=== PATIENT | female | born 1950 | race Caucasian/White ===

== ENCOUNTER 2018-04-29 12:40 | Inpatient (IN) | END 2018-05-04 21:05 | disposition home or self-care (01) | DRG 247 ==

== ENCOUNTER 2018-05-10 10:49 | Inpatient (IN) | END 2018-05-19 16:20 | disposition home or self-care (01) | DRG 377 ==

== ENCOUNTER 2018-05-24 08:34 | Inpatient (IN) | END 2018-05-27 15:10 | disposition home or self-care (01) | DRG 281 ==

== ENCOUNTER 2018-07-20 22:05 | Inpatient (IN) | END 2018-07-24 15:50 | disposition home or self-care (01) | DRG 378 ==

== ENCOUNTER 2018-08-04 00:56 | Observation (INO) | END 2018-08-05 18:36 | disposition home or self-care (01) ==

== ENCOUNTER 2019-01-10 06:19 | Inpatient (IN) | payer OTHER ==
[~2019-01-10] VITALS: Ht 157.5 cm; Wt 63.1 kg
[~2019-01-10 06:19] MED LIST: AMIO200T4 PO; ASPI-817 PO; ATOR-2 PO; CLOP75TA28 PO; FURO20TA3 PO; GABA300C16 PO; INSU100V14 SC; LANT3I SC; LIPA1CAP4 PO; METO-335 PO; PANT40TA4 PO; POLY17PO28 PO; POTA8CAP PO; SUCR1TAB56 PO
--- NOTE | 2019-01-10 06:56 | ERD ---
ER Documentation Chief Complaint Chief Complaint I feel bad HPI This is a 68-year-old female states she woke up this morning and felt bad. The daughter states that her blood pressure was elevated and she was shaking but not a seizure. Patient says she has had a cough for 3 or 4 days with occasional productive sputum. She is a history of cardiac stent diabetes. She had no chest pain. No headache, no abdominal pain, no nausea vomiting diarrhea. She does have general malaise, no dysuria ROS All systems reviewed and are negative except as per history of present illness. Medications Home Meds Active Scripts Potassium Chloride* (Potassium Chloride*) 8 Meq Capsule.er, 8 MEQ PO DAILY for 30 Days, CAP Prov:MILAN PORTER MD 08/05/18 Furosemide* (Furosemide*) 20 Mg Tablet, 20 MG PO DAILY for 30 Days, #60 TAB Prov:MILAN PORTER MD 08/05/18 Metoprolol Succinate* (Toprol XL*) 25 Mg Tab.sr.24h, 12.5 MG PO DAILY for 30 Days Prov:MILAN PORTER MD 05/27/18 Amiodarone Hcl* (Amiodarone Hcl*) 200 Mg Tablet, 200 MG PO DAILY for 30 Days, TAB Prov:MILAN PORTER MD 05/27/18 Polyethylene Glycol* (Polyethylene Glycol*) 17 Gm Powd.pack, 17 GM PO DAILY PRN for CONSTIPATION for 30 Days Prov:DINA STOKES 05/19/18 Sucralfate* (Carafate*) 1 Gm Tab, 1 GM PO QID for 30 Days, TAB Prov:DINA STOKES 05/19/18 Pantoprazole* (Pantoprazole*) 40 Mg Tablet., 40 MG PO BID@06,18 for 30 Days Prov:DINA STOKES 05/19/18 Aspirin* (Aspirin* EC) 81 Mg Tablet., 81 MG PO DAILY for 30 Days Prov:DINA STOKES 05/19/18 Clopidogrel Bisulfate (Clopidogrel) 75 Mg Tablet, 75 MG PO DAILY for 30 Days, TAB Prov:DINA STOKES 05/19/18 Atorvastatin* (Atorvastatin*) 80 Mg Tablet, 80 MG PO DAILY@21 for 28 Days, TAB Prov:PERRY BOYER MD 05/03/18 Reported Medications Gabapentin* (Gabapentin*) 300 Mg Capsule, 300 MG PO BID, #60 CAP 04/29/18 Akgmci-Iwiftuws-Uubkmvw* (Mally ESQUIVEL* 12,000) 12,000 L-38,000-60,000 Unit Capsule., 1 CAP PO WITH MEALS, CAP 04/29/18 Insulin Glargine* (Lantus*) 100 Unit/Ml Soln, 15 UNIT SC QHS, #1 VIAL 12/17/15 Insulin Regular, Human (Humulin R) 100 Units/Ml Vial, 0 SC SLIDING SCALE AC, VIAL 12/17/15 Allergies Allergies: Coded Allergies: No Known Allergy (Unverified , 05/24/18) PMhx/Soc History of Surgery: Yes (partial removal of pancrea, stent, EGD) Anesthesia Reaction: Yes Hx Neurological Disorder: No Hx Respiratory Disorders: No Hx Cardiac Disorders: Yes (CAD, DLD, HTN, a-fib) Hx Psychiatric Problems: No Hx Miscellaneous Medical Probl: No Hx Alcohol Use: No Hx Substance Use: No Hx Tobacco Use: No FmHx Family History: No coronary disease Physical Exam Vitals Vital Signs Date Temp Pulse Resp B/P (MAP) Pulse Ox O2 O2 Flow FiO2 Time Delivery Rate 01/10/19 69 16 129/66 96 Nasal 2.0 09:12 (87) Cannula 01/10/19 65 16 150/80 96 Nasal 07:23 (103) Cannula 01/10/19 Nasal 2 07:00 Cannula 01/10/19 98.0 72 20 144/80 92 07:00 (101) Physical Exam Const: Well-developed, well-nourished Head: Atraumatic, normocephalic Eyes: Normal Conjunctiva, PERRLA, EOMI, normal sclera, no nystagmus ENT: Normal External Ears, Nose and Mouth, moist mucus membranes. Neck: Full range of motion. No meningismus, no lymphadenopathy. Resp: Scattered mild rhonchi bilaterally, room air saturations 93% Cardio: Regular rate and rhythm, no murmurs, S1 S2 present Abd: Soft, non tender x 4, non distended. Normal bowel sounds, no guarding or rebound, no pulsitile abdominal masses or bruits Skin: No petechiae or rashes, no ecchymosis , no maculopapular rash Back: No midline or flank tenderness Ext: No cyanosis, or edema, FROM x 4, normal inspection, neurovascularly intact x 4 Neur: Awake and alert, STR 5/5 x 4, sensation intact x 4, no focal findings, cerebellum intact Psych: Normal Mood and Affect Result Diagram: 01/10/19 0659 01/10/19 0659 Results 24 hrs Laboratory Tests Test 01/10/19 06:43 01/10/19 06:59 Bedside Glucose 170 mg/dL White Blood Count 7.8 10^3/ul Red Blood Count 4.32 10^6/ul Hemoglobin 12.0 g/dl Hematocrit 38.2 % Mean Corpuscular Volume 88.4 fl Mean Corpuscular Hemoglobin 27.8 pg Mean Corpuscular Hemoglobin Concent 31.4 g/dl Red Cell Distribution Width 16.8 % Platelet Count 251 10^3/UL Mean Platelet Volume 13.8 fl Immature Granulocytes % 0.300 % Neutrophils % 46.0 % Lymphocytes % 40.8 % Monocytes % 10.4 % Eosinophils % 1.7 % Basophils % 0.8 % Nucleated Red Blood Cells % 0.0 /100WBC Immature Granulocytes # 0.020 10^3/ul Neutrophils # 3.6 10^3/ul Lymphocytes # 3.2 10^3/ul Monocytes # 0.8 10^3/ul Eosinophils # 0.1 10^3/ul Basophils # 0.1 10^3/ul Nucleated Red Blood Cells # 0.0 10^3/ul Urine Color STRAW Urine Clarity CLEAR Urine pH 7.0 Urine Specific [place] 1.008 Urine Ketones NEGATIVE mg/dL Urine Nitrite NEGATIVE mg/dL Urine Bilirubin NEGATIVE mg/dL Urine Urobilinogen NEGATIVE mg/dL Urine Leukocyte Esterase TRACE Chinedu/ul Urine Microscopic RBC 1 /HPF Urine Microscopic WBC 4 /HPF Urine Hemoglobin NEGATIVE mg/dL Urine Glucose NEGATIVE mg/dL Urine Total Protein NEGATIVE mg/dl Sodium Level 146 mmol/L Potassium Level 3.9 mmol/L Chloride Level 104 mmol/L Carbon Dioxide Level 31 mmol/L Anion Gap 11 Blood Urea Nitrogen 25 mg/dl Creatinine 1.08 mg/dl Est Glomerular Filtrat Rate mL/min 50 mL/min Glucose Level 171 mg/dl Calcium Level 9.2 mg/dl Total Bilirubin 0.7 mg/dl Direct Bilirubin 0.00 mg/dl Indirect Bilirubin 0.7 mg/dl Aspartate Amino Transf (AST/SGOT) 21 IU/L Alanine Aminotransferase (ALT/SGPT) 20 IU/L Alkaline Phosphatase 109 IU/L Troponin I 0.022 ng/ml B-Type Natriuretic Peptide 2220 PG/ML Total Protein 7.0 g/dl Albumin 4.0 g/dl Globulin 3.00 g/dl Albumin/Globulin Ratio 1.33 Procedures/MDM Ordering MD: ANDI DANIELS DO Location: E/R Room/Bed: PROCEDURE: XR Chest. CLINICAL INDICATION: Chest pain. TECHNIQUE: Chest, 1 view. COMPARISON: 08/04/2018 FINDINGS: The cardiomediastinal silhouette demonstrates enlargement of the cardiac silhouette. There are aortic calcifications. There is bilateral interstitial pulmonary edema. No pleural effusion is seen. No definite pneumothorax is seen. No acute osseous abnormality. IMPRESSION: Cardiomegaly with interstitial pulmonary edema. 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 Will admit for some diuresis/workup / stabilization. Departure Diagnosis: Primary Impression: Congestive heart failure Heart failure type: unspecified Heart failure chronicity: unspecified Qualified Codes: I50.9 - Heart failure, unspecified Condition: Stable ANDI DANIELS DO Jan 10, 2019 06:56
[2019-01-10] MEDS ORDERED: FUROSEMIDE 40 MG INJ IV ONE (11:30)
[2019-01-10] MEDS ORDERED: ACETAMINOPHEN 325 MG TAB PO PRN ×2 (13:00)
[2019-01-10] MEDS ORDERED: ONDANSETRON 4 MG INJ IV PRN ×2 (13:00)
--- NOTE | 2019-01-10 13:46 | CONS ---
Assessment/Plan Assessment/Plan Assessment/Plan (Daily) Assessment: CHF systolic and diastolic acute and chronic Anterior ST elevation [place] April 29, 2018 CAD status post PCI to LAD 04/29/2018 Ischemic cardiomyopathy with ejection fraction 35% History of hypertension Diabetes Paroxysmal atrial fibrillation, currently sinus rhythm GI bleed, history Plan: Furosemide as needed ACS less likely continue ASA and plavix Telemetry Consultation Date/Type/Reason Admit Date/Time Type of Consult Cardiology Reason for Consultation CHF Date/Time of Note DATE: 01/10/19 TIME: 13:42 Hx of Present Illness admitted "feeling bad", no chest pain, currently in ED, able to lie flat, elevated BNP and fluid in CXR was noted. Constitutional: no complaints ENT: no complaints Respiratory: no complaints Cardiovascular: no complaints Gastrointestinal: no complaints Musculoskeletal: no complaints Skin: no complaints Neurologic: no complaints Endocrine: no complaints Past Medical History Medical History: congestive heart failure, coronary artery disease, high cholesterol, hypertension Home Meds Active Scripts Potassium Chloride* (Potassium Chloride*) 8 Meq Capsule.er, 8 MEQ PO DAILY for 30 Days, CAP Prov:MILAN PORTER MD 08/05/18 Furosemide* (Furosemide*) 20 Mg Tablet, 20 MG PO DAILY for 30 Days, #60 TAB Prov:MILAN PORTER MD 08/05/18 Metoprolol Succinate* (Toprol XL*) 25 Mg Tab.sr.24h, 12.5 MG PO DAILY for 30 Days Prov:MILAN PORTER MD 05/27/18 Amiodarone Hcl* (Amiodarone Hcl*) 200 Mg Tablet, 200 MG PO DAILY for 30 Days, TAB Prov:MILAN PORTER MD 05/27/18 Polyethylene Glycol* (Polyethylene Glycol*) 17 Gm Powd.pack, 17 GM PO DAILY PRN for CONSTIPATION for 30 Days Prov:DINA STOKES 05/19/18 Sucralfate* (Carafate*) 1 Gm Tab, 1 GM PO QID for 30 Days, TAB Prov:DINA STOKES 05/19/18 Pantoprazole* (Pantoprazole*) 40 Mg Tablet., 40 MG PO BID@06,18 for 30 Days Prov:DINA STOKES 05/19/18 Aspirin* (Aspirin* EC) 81 Mg Tablet., 81 MG PO DAILY for 30 Days Prov:DINA STOKES 05/19/18 Clopidogrel Bisulfate (Clopidogrel) 75 Mg Tablet, 75 MG PO DAILY for 30 Days, TAB Prov:DINA STOKES 05/19/18 Atorvastatin* (Atorvastatin*) 80 Mg Tablet, 80 MG PO DAILY@21 for 28 Days, TAB Prov:PERRY BOYER MD 05/03/18 Reported Medications Gabapentin* (Gabapentin*) 300 Mg Capsule, 300 MG PO BID, #60 CAP 04/29/18 Sunnke-Zsfdymcz-Aqzgrwy* (Mally ESQUIVEL* 12,000) 12,000 L-38,000-60,000 Unit Capsule.dr, 1 CAP PO WITH MEALS, CAP 04/29/18 Insulin Glargine* (Lantus*) 100 Unit/Ml Soln, 15 UNIT SC QHS, #1 VIAL 12/17/15 Insulin Regular, Human (Humulin R) 100 Units/Ml Vial, 0 SC SLIDING SCALE AC, VIAL 12/17/15 Medications Current Medications Ondansetron HCl (Zofran Inj) 4 mg ER BRIDGE PRN IV NAUSEA/VOMITING; Start 01/10/19 at 13:00; Stop 01/11/19 at 12:59 Acetaminophen (Tylenol Tab) 650 mg ER BRIDGE PRN PO .MILD PAIN 1-3 OR TEMP; Start 01/10/19 at 13:00; Stop 01/11/19 at 12:59 Ondansetron HCl (Zofran Inj) 4 mg ER BRIDGE PRN IV NAUSEA/VOMITING; Start 01/10/19 at 13:00; Stop 01/11/19 at 12:59 Acetaminophen (Tylenol Tab) 650 mg ER BRIDGE PRN PO .MILD PAIN 1-3 OR TEMP; Start 01/10/19 at 13:00; Stop 01/11/19 at 12:59 Allergies: Coded Allergies: No Known Allergy (Unverified , 05/24/18) Past Surgical History Past Surgical Hx: angioplasty, cholecystectomy, other Family History Significant Family History: hypertension Social History Smoking Status: Never smoker Exam/Review of Systems Vital Signs Vitals Vital Signs Date Temp Pulse Resp B/P (MAP) Pulse Ox O2 O2 Flow FiO2 Time Delivery Rate 01/10/19 65 16 132/71 98 Nasal 2.0 12:46 (91) Cannula 01/10/19 98.0 07:00 Exam Constitutional: frail Head: normocephalic, atraumatic Neck: supple, jvd Respiratory: diminished breath sounds Cardiovascular: regular rate and rhythm Musculoskeletal: nl extremities to inspection Extremities: normal pulses Labs Result Diagram: 01/10/19 0659 01/10/19 0659 Results 24hrs Laboratory Tests Test 01/10/19 06:43 01/10/19 06:59 Bedside Glucose 170 White Blood Count 7.8 Red Blood Count 4.32 Hemoglobin 12.0 Hematocrit 38.2 Mean Corpuscular Volume 88.4 Mean Corpuscular Hemoglobin 27.8 L Mean Corpuscular Hemoglobin Concent 31.4 L Red Cell Distribution Width 16.8 H Platelet Count 251 Mean Platelet Volume 13.8 H Immature Granulocytes % 0.300 Neutrophils % 46.0 Lymphocytes % 40.8 Monocytes % 10.4 Eosinophils % 1.7 Basophils % 0.8 Nucleated Red Blood Cells % 0.0 Immature Granulocytes # 0.020 Neutrophils # 3.6 Lymphocytes # 3.2 H Monocytes # 0.8 Eosinophils # 0.1 Basophils # 0.1 Nucleated Red Blood Cells # 0.0 Urine Color STRAW Urine Clarity CLEAR Urine pH 7.0 Urine Specific [place] 1.008 Urine Ketones NEGATIVE Urine Nitrite NEGATIVE Urine Bilirubin NEGATIVE Urine Urobilinogen NEGATIVE Urine Leukocyte Esterase TRACE A Urine Microscopic RBC 1 Urine Microscopic WBC 4 Urine Hemoglobin NEGATIVE Urine Glucose NEGATIVE Urine Total Protein NEGATIVE Sodium Level 146 H Potassium Level 3.9 Chloride Level 104 Carbon Dioxide Level 31 Anion Gap 11 Blood Urea Nitrogen 25 H Creatinine 1.08 H Est Glomerular Filtrat Rate mL/min 50 L Glucose Level 171 Calcium Level 9.2 Total Bilirubin 0.7 Direct Bilirubin 0.00 Indirect Bilirubin 0.7 Aspartate Amino Transf (AST/SGOT) 21 Alanine Aminotransferase (ALT/SGPT) 20 Alkaline Phosphatase 109 Troponin I 0.022 B-Type Natriuretic Peptide 2220 H Total Protein 7.0 Albumin 4.0 Globulin 3.00 Albumin/Globulin Ratio 1.33 Imaging Imaging EKG: SR, no abnormalities Medications Medications Current Medications Ondansetron HCl (Zofran Inj) 4 mg ER BRIDGE PRN IV NAUSEA/VOMITING; Start 01/10/19 at 13:00; Stop 01/11/19 at 12:59 Acetaminophen (Tylenol Tab) 650 mg ER BRIDGE PRN PO .MILD PAIN 1-3 OR TEMP; Start 01/10/19 at 13:00; Stop 01/11/19 at 12:59 Ondansetron HCl (Zofran Inj) 4 mg ER BRIDGE PRN IV NAUSEA/VOMITING; Start 01/10/19 at 13:00; Stop 01/11/19 at 12:59 Acetaminophen (Tylenol Tab) 650 mg ER BRIDGE PRN PO .MILD PAIN 1-3 OR TEMP; Start 01/10/19 at 13:00; Stop 01/11/19 at 12:59 CLAUDIO JIN MD Jan 10, 2019 13:46
--- NOTE | 2019-01-10 14:25 | HP ---
DINA STOKES 01/10/19 1425: Date/Time of Note Date/Time of Note DATE: 01/10/19 TIME: 14:25 Assessment/Plan VTE Prophylaxis Pharmacological prophylaxis: LMWH Lines/Catheters IV Catheter Type (from Nrsg): Saline Lock Assessment/Plan Hospital Course 1. CHF exacerbation,BNP 3500. hx of EF 35%. On chest xray: "Cardiomegaly with interstitial pulmonary edema.." 2. Hypernatremia 3. CAD s/p stent to LAD, 2017 4. JONATHAN? creatinine slightly increase to 1.08 5. HTN 6. DM type II 7. Obesity 8. hyperlipidemia 9. Overweight 10. hx of pancreatic resection Assessment/Plan - Admit telemetry - DVT prophylaxis lovenox -. GI prophylaxis protonix - SS moderate with insulin coverage -dr Bhardwaj is a cardio consult, seen -C/w home meds -communicated with daughter - 1800 ADA diet with fluid restrictions - fluid restrictions Result Diagram: 01/10/19 0659 01/10/19 0659 Results 24hrs Laboratory Tests Test 01/10/19 06:43 01/10/19 06:59 Bedside Glucose 170 White Blood Count 7.8 Red Blood Count 4.32 Hemoglobin 12.0 Hematocrit 38.2 Mean Corpuscular Volume 88.4 Mean Corpuscular Hemoglobin 27.8 L Mean Corpuscular Hemoglobin Concent 31.4 L Red Cell Distribution Width 16.8 H Platelet Count 251 Mean Platelet Volume 13.8 H Immature Granulocytes % 0.300 Neutrophils % 46.0 Lymphocytes % 40.8 Monocytes % 10.4 Eosinophils % 1.7 Basophils % 0.8 Nucleated Red Blood Cells % 0.0 Immature Granulocytes # 0.020 Neutrophils # 3.6 Lymphocytes # 3.2 H Monocytes # 0.8 Eosinophils # 0.1 Basophils # 0.1 Nucleated Red Blood Cells # 0.0 Urine Color STRAW Urine Clarity CLEAR Urine pH 7.0 Urine Specific [place] 1.008 Urine Ketones NEGATIVE Urine Nitrite NEGATIVE Urine Bilirubin NEGATIVE Urine Urobilinogen NEGATIVE Urine Leukocyte Esterase TRACE A Urine Microscopic RBC 1 Urine Microscopic WBC 4 Urine Hemoglobin NEGATIVE Urine Glucose NEGATIVE Urine Total Protein NEGATIVE Sodium Level 146 H Potassium Level 3.9 Chloride Level 104 Carbon Dioxide Level 31 Anion Gap 11 Blood Urea Nitrogen 25 H Creatinine 1.08 H Est Glomerular Filtrat Rate mL/min 50 L Glucose Level 171 Calcium Level 9.2 Total Bilirubin 0.7 Direct Bilirubin 0.00 Indirect Bilirubin 0.7 Aspartate Amino Transf (AST/SGOT) 21 Alanine Aminotransferase (ALT/SGPT) 20 Alkaline Phosphatase 109 Troponin I 0.022 B-Type Natriuretic Peptide 2220 H Total Protein 7.0 Albumin 4.0 Globulin 3.00 Albumin/Globulin Ratio 1.33 HPI/ROS Admit Date/Time Admit Date/Time Hx of Present Illness This is a 68-year-old female with history of STEMI, status post stenting to the LAD in April 2018, currently on Aspirin and Plavix, ischemic cardiomyopathy and congestive heart failure with an ejection fraction of 35%, hx of atrial fibrillation, diabetes, s/p pancreas partial removal, anemia and recurrent UTI who is presented to ER with sudden onset of chills, productive cough and shortness of breath last night. She woke up this morning and felt coryza. Per ER record the daughter states that patient blood pressure was elevated and she was shaking at the night. Patient says she has had a cough for 3 or 4 days. ROS Respiratory: no complaints, pain, cough, pleuritic pain, shortness of breath, sputum (white), wheezing, other Cardiovascular: palpitations (at the nigth time), paroxysmal nocturnal dyspnea Genitourinary: no complaints, dysuria Musculoskeletal: bone/joint pain; No no complaints, No back pain, No neck pain, No restricted range of motion, No swelling, No other Skin: pruritis; No no complaints, No bruising, No erythema, No laceration, No rash, No skin lesions, No other PMH/Family/Social Past Medical History Medical History: congestive heart failure, diabetes, hypertension Medications Current Medications Ondansetron HCl (Zofran Inj) 4 mg ER BRIDGE PRN IV NAUSEA/VOMITING; Start 01/10/19 at 13:00; Stop 01/11/19 at 12:59 Acetaminophen (Tylenol Tab) 650 mg ER BRIDGE PRN PO .MILD PAIN 1-3 OR TEMP; Start 01/10/19 at 13:00; Stop 01/11/19 at 12:59 Ondansetron HCl (Zofran Inj) 4 mg ER BRIDGE PRN IV NAUSEA/VOMITING; Start 01/10/19 at 13:00; Stop 01/11/19 at 12:59 Acetaminophen (Tylenol Tab) 650 mg ER BRIDGE PRN PO .MILD PAIN 1-3 OR TEMP; Start 01/10/19 at 13:00; Stop 01/11/19 at 12:59 Coded Allergies: No Known Allergy (Unverified , 01/10/19) Past Surgical History Past Surgical Hx: angioplasty, cholecystectomy, other (pancreatic resection) Family History Significant Family History: hypertension Social History Alcohol Use: none Smoking Status: Never smoker Drug Use: none Exam/Review of Systems Vital Signs Vitals Vital Signs Date Temp Pulse Resp B/P (MAP) Pulse Ox O2 O2 Flow FiO2 Time Delivery Rate 01/10/19 65 16 132/71 98 Nasal 2.0 12:46 (91) Cannula 01/10/19 98.0 07:00 Exam Constitutional: alert, oriented Psych: no complaints Head: normocephalic Respiratory: clear to auscultation Cardiovascular: regular rate and rhythm Gastrointestinal: soft Genitourinary - Female: CVA tenderness; No nl adnexae, No nl external genitalia, No CMT, No uterus, No other MILAN PORTER MD 01/10/19 1740: Assessment/Plan Assessment/Plan Assessment/Plan seen and examined CP/ chf diurectics NTG for pain Cards consukt Result Diagram: 01/10/19 0659 01/10/19 0659 PMH/Family/Social Past Medical History Coded Allergies: No Known Allergy (Unverified , 01/10/19) DINA STOKES Jan 10, 2019 14:25 MILAN PORTER MD Jan 10, 2019 17:40
[2019-01-10] MEDS ORDERED: LISI-313 PO (14:55)
[2019-01-10] MEDS ORDERED: SUCR1TAB56 PO (14:56)
[2019-01-10] MEDS ORDERED: AMIO200T4 PO (14:56)
[2019-01-10] MEDS ORDERED: ASPI-817 PO (14:57)
[2019-01-10] MEDS ORDERED: FURO20TA3 PO (14:57)
[2019-01-10] MEDS ORDERED: PANT40TA4 PO (14:58)
[2019-01-10] MEDS ORDERED: METO-335 PO (14:59)
[2019-01-10] MEDS ORDERED: ATOR-2 PO (14:59)
[2019-01-10] MEDS ORDERED: CLOP75TA19 PO (14:59)
[2019-01-10] MEDS ORDERED: LIPA1CAP4 PO (15:00)
[2019-01-10] MEDS ORDERED: FENO145T37 PO (15:00)
[2019-01-10] MEDS ORDERED: LANT3I SC (15:01)
[2019-01-10] MEDS ORDERED: INSU100V3 IJ (15:02)
[2019-01-10] MEDS ORDERED: POTA10TA37 PO (15:03)
[2019-01-10] MEDS ORDERED: FUROSEMIDE 20 MG TAB PO SCH (15:30)
[2019-01-10] MEDS: ASPIRIN (EC) 81 MG TAB PO SCH (16:10)
[2019-01-10] MEDS: CLOPIDOGREL 75 MG TAB PO SCH (16:10)
[2019-01-10] MEDS ORDERED: GLUCAGON 1 MG INJ IM PRN (16:30)
[2019-01-10] MEDS ORDERED: GLUCOSE GEL 15 GRAM TUBE PO PRN ×2 (16:30)
[2019-01-10] MEDS ORDERED: GLUCOSE GEL 15 GRAM TUBE BUCCAL PRN (16:30)
[2019-01-10] MEDS ORDERED: DEXTROSE 50% 50 ML SYRINGE IV PRN ×2 (16:30)
[2019-01-10 16:33] VITALS: BP 160/74; PULSE 66; RESP 18
[2019-01-10 16:41] VITALS: PULSE 61
[2019-01-10] MEDS: SUCRALFATE 1 GM TAB PO SCH ×2 (17:31→22:31)
[2019-01-10] MEDS: AMIODARONE 200 MG TAB PO SCH (17:31)
[2019-01-10] MEDS: POTASSIUM CHLORIDE (SR) 10 MEQ TAB PO SCH (17:32)
[2019-01-10] MEDS: METOPROLOL (XL) 25 MG TAB PO SCH (17:33)
[2019-01-10 17:55] VITALS: Ht 157.5 cm; Wt 63.1 kg
[2019-01-10] MEDS ORDERED: CREON (12k-38k-60k) 1 CAP PO SCH (17:55)
[2019-01-10] MEDS ORDERED: NITROGLYCERIN (SL) 0.4 MG TAB SL PRN (18:00)
[2019-01-10] MEDS: CREON (12k-38k-60k) 1 CAP PO SCH (18:55)
[2019-01-10] MEDS: INSULIN ASPART [NOVOLOG] 3 ML PEN SC SCH ×2 (18:58→21:00)
[2019-01-10 19:41] VITALS: BP 134/70; PULSE 60; RESP 20
[2019-01-10 20:00] VITALS: PULSE 55
[2019-01-10] MEDS: ATORVASTATIN 80 MG TAB PO SCH (22:31)
[2019-01-11] VITALS (12 sets, daily range): BP systolic 87–124; BP diastolic 53–76; PULSE 43–59; RESP 17–18
[2019-01-11] MEDS: PANTOPRAZOLE (EC) 40 MG TAB PO SCH (06:50)
[2019-01-11] MEDS: SUCRALFATE 1 GM TAB PO SCH ×4 (06:50→21:14)
[2019-01-11] MEDS: INSULIN ASPART [NOVOLOG] 3 ML PEN SC SCH ×4 (07:55→21:54)
[2019-01-11] MEDS: AMIODARONE 200 MG TAB PO SCH (08:28)
[2019-01-11] MEDS: CREON (12k-38k-60k) 1 CAP PO SCH ×3 (08:29→17:27)
[2019-01-11] MEDS: ASPIRIN (EC) 81 MG TAB PO SCH (08:29)
[2019-01-11] MEDS: CLOPIDOGREL 75 MG TAB PO SCH (08:29)
[2019-01-11] MEDS: FENOFIBRATE 145 MG TAB PO SCH (08:29)
[2019-01-11] MEDS: POTASSIUM CHLORIDE (SR) 10 MEQ TAB PO SCH (08:30)
[2019-01-11] MEDS: FUROSEMIDE 40 MG INJ IV SCH (08:30)
[2019-01-11] MEDS: ENOXAPARIN 40 MG/0.4 ML SYG SC SCH (08:40)
[2019-01-11] MEDS: METOPROLOL (XL) 25 MG TAB PO SCH (08:41)
[2019-01-11] MEDS ORDERED: ENOXAPARIN 40 MG/0.4 ML SYG SC ONE (09:00)
[2019-01-11] MEDS ORDERED: LISINOPRIL 5 MG TAB PO SCH (09:00)
--- NOTE | 2019-01-11 14:30 | PN ---
Date/Time of Note Date/Time of Note DATE: 01/11/19 TIME: 14:26 Assessment/Plan VTE Prophylaxis Risk score (from Ns)>0 risk: 3 SCD applied (from [facility] [place]): No SCD contraindicated: low risk/ambulating Pharmacological prophylaxis: LMWH Lines/Catheters IV Catheter Type (from [facility]): Peripheral IV Assessment/Plan Hospital Course 1. CHF exacerbation,BNP 3500. hx of EF 35%. On chest xray: "Cardiomegaly with interstitial pulmonary edema.." 2. Hypernatremia, resolved 144 today 3. CAD s/p stent to LAD, 2017 4. JONATHAN? creatinine slightly increase to 1.17 from 1.08. Ua showed trace leucocyte esterase. 5. HTN, controlled 6. DM type II, controlled Hg A1 C 7.0 7. Obesity 8. hyperlipidemia 9. Overweight 10. hx of pancreatic resection 11. bradycardia Assessment/Plan - Admit telemetry - DVT prophylaxis lovenox -. GI prophylaxis protonix - SS moderate with insulin coverage -dr Bhardwaj is a cardio consult, seen -C/w home meds -communicated with daughter - 1800 ADA diet with fluid restrictions - fluid restrictions Result Diagram: 01/11/19 0613 01/11/19 0613 Results 24hrs Laboratory Tests Test 01/10/19 16:13 01/10/19 17:23 01/10/19 22:28 01/11/19 06:13 Bedside Glucose 132 182 178 White Blood Count 7.1 Red Blood Count 4.51 Hemoglobin 12.5 Hematocrit 39.2 Mean Corpuscular 86.9 Volume Mean Corpuscular 27.7 L Hemoglobin Mean Corpuscular 31.9 L Hemoglobin Concent Red Cell 16.4 H Distribution Width Platelet Count 245 Mean Platelet Volume 13.4 H Immature 0.400 Granulocytes % Neutrophils % 52.1 Lymphocytes % 33.4 Monocytes % 11.6 H Eosinophils % 1.8 Basophils % 0.7 Nucleated Red Blood 0.0 Cells % Immature 0.030 Granulocytes # Neutrophils # 3.7 Lymphocytes # 2.4 Monocytes # 0.8 Eosinophils # 0.1 Basophils # 0.1 Nucleated Red Blood 0.0 Cells # Sodium Level 144 Potassium Level 4.1 Chloride Level 100 Carbon Dioxide Level 34 H Anion Gap 10 Blood Urea Nitrogen 26 H Creatinine 1.17 H Est Glomerular 46 L Filtrat Rate mL/min Glucose Level 145 Hemoglobin A1c 7.0 H Calcium Level 9.8 Test 01/11/19 07:49 01/11/19 11:46 Bedside Glucose 139 335 H Subjective 24 Hr Interval Summary Constitutional: no complaints Cardiovascular: chest pain; No no complaints, No edema, No lightheadedness, No orthopenea, No palpitations, No paroxysmal nocturnal dyspnea, No other Gastrointestinal: no complaints Genitourinary: no complaints Exam/Review of Systems Exam Vitals Vital Signs Date Temp Pulse Resp B/P (MAP) Pulse Ox O2 O2 Flow FiO2 Time Delivery Rate 01/11/19 56 113/76 13:11 (88) 01/11/19 97.6 17 97 11:35 01/10/19 Room Air 16:33 01/10/19 2.0 12:46 Intake and Output 01/10/19 01/10/19 01/11/19 1515:00 23:00 07:00 IntakeIntake Total 400 ml BalanceBalance 400 ml Respiratory: clear to auscultation Cardiovascular: regular rate and rhythm, other (bradycardia) Gastrointestinal: soft Results Results 24hrs Laboratory Tests Test 01/10/19 16:13 01/10/19 17:23 01/10/19 22:28 01/11/19 06:13 Bedside Glucose 132 182 178 White Blood Count 7.1 Red Blood Count 4.51 Hemoglobin 12.5 Hematocrit 39.2 Mean Corpuscular 86.9 Volume Mean Corpuscular 27.7 L Hemoglobin Mean Corpuscular 31.9 L Hemoglobin Concent Red Cell 16.4 H Distribution Width Platelet Count 245 Mean Platelet Volume 13.4 H Immature 0.400 Granulocytes % Neutrophils % 52.1 Lymphocytes % 33.4 Monocytes % 11.6 H Eosinophils % 1.8 Basophils % 0.7 Nucleated Red Blood 0.0 Cells % Immature 0.030 Granulocytes # Neutrophils # 3.7 Lymphocytes # 2.4 Monocytes # 0.8 Eosinophils # 0.1 Basophils # 0.1 Nucleated Red Blood 0.0 Cells # Sodium Level 144 Potassium Level 4.1 Chloride Level 100 Carbon Dioxide Level 34 H Anion Gap 10 Blood Urea Nitrogen 26 H Creatinine 1.17 H Est Glomerular 46 L Filtrat Rate mL/min Glucose Level 145 Hemoglobin A1c 7.0 H Calcium Level 9.8 Test 01/11/19 07:49 01/11/19 11:46 Bedside Glucose 139 335 H Medications Medication Current Medications Amiodarone HCl (Cordarone) 200 mg DAILY PO Last administered on 01/11/19 08:28; Admin Dose 200 MG; Start 01/10/19 at 15:30 Aspirin (Halfprin) 81 mg DAILY PO Last administered on 01/11/19 08:29; Admin Dose 81 MG; Start 01/10/19 at 15:30 Atorvastatin Calcium (Lipitor) 80 mg QHS PO Last administered on 01/10/19 22:31; Admin Dose 80 MG; Start 01/10/19 at 21:00 Clopidogrel Bisulfate (plaVIX) 75 mg DAILY PO Last administered on 01/11/19 08:29; Admin Dose 75 MG; Start 01/10/19 at 15:30 Fenofibrate (Tricor) 145 mg DAILY PO Last administered on 01/11/19 08:29; Admin Dose 145 MG; Start 01/11/19 at 09:00 Insulin Glargine (Lantus) 15 units QHS SC Last administered on 01/11/19 00:00; Admin Dose 15 UNITS; Start 01/10/19 at 21:00 Lisinopril (Zestril) 5 mg DAILY PO Last administered on 01/11/19 08:40; Admin Dose 5 MG; Start 01/11/19 at 09:00 Metoprolol Succinate (Toprol Xl) 12.5 mg DAILY PO Last administered on 01/10/19 17:33; Admin Dose 12.5 MG; Start 01/10/19 at 15:30 Pantoprazole (Protonix Tab) 40 mg AC BREAKFAST PO Last administered on 01/11/19 06:50; Admin Dose 40 MG; Start 01/11/19 at 07:00 Potassium Chloride (Klor-Con 10) 10 meq DAILY PO Last administered on 01/11/19 08:30; Admin Dose 10 MEQ; Start 01/10/19 at 15:30 Sucralfate (Carafate) 1 gm AC MEALS AND BEDTIME PO Last administered on 01/11/19 11:51; Admin Dose 1 GM; Start 01/10/19 at 17:25 Insulin Aspart (Novolog Insulin Pen) NOVOLOG *MILD* ALGORITHM WITH MEALS BEDTIME SC Last administered on 01/11/19 12:02; Admin Dose 5 UNIT; Start 01/10/19 at 17:55 Furosemide (Lasix) 40 mg DAILY IV Last administered on 01/11/19at 08:30; Admin Dose 40 MG; Start 01/11/19 at 09:00 Enoxaparin Sodium (Lovenox) 40 mg DAILY SC Last administered on 01/11/19at 08:40; Admin Dose 40 MG; Start 01/11/19 at 09:00 Miscellaneous Information 1 ea NOTE XX ; Start 01/10/19 at 16:30 Glucose (Glutose) 15 gm Q15M PRN PO DECREASED GLUCOSE; Start 01/10/19 at 16:30 Glucose (Glutose) 22.5 gm Q15M PRN PO DECREASED GLUCOSE; Start 01/10/19 at 16:30 Dextrose (D50w Syringe) 25 ml Q15M PRN IV DECREASED GLUCOSE; Start 01/10/19 at 16:30 Dextrose (D50w Syringe) 50 ml Q15M PRN IV DECREASED GLUCOSE; Start 01/10/19 at 16:30 Glucagon (Glucagen) 1 mg Q15M PRN IM DECREASED GLUCOSE; Start 01/10/19 at 16:30 Glucose (Glutose) 15 gm Q15M PRN BUCCAL DECREASED GLUCOSE; Start 01/10/19 at 16:30 Nitroglycerin (Nitroglycerin (Sl Tab) 0.4 Mg) 1 tab Q5M PRN SL ANGINA; Start 01/10/19 at 18:00 Amylase/Lipase/ Protease (CREON (12k-38k-60k)) 1 cap WITH MEALS PO Last administered on 01/11/19at 11:51; Admin Dose 1 CAP; Start 01/10/19 at 18:42 DINA STOKES Jan 11, 2019 14:30
[2019-01-11] MEDS: ATORVASTATIN 80 MG TAB PO SCH (21:14)
[2019-01-11] MEDS: INSULIN GLARGINE [LANTus] (100 UNITS/ML) SYG SC SCH ×2 (21:53)
[2019-01-12] VITALS (11 sets, daily range): BP systolic 99–127; BP diastolic 54–73; PULSE 44–67; RESP 16–20
[2019-01-12] MEDS: SUCRALFATE 1 GM TAB PO SCH ×4 (07:25→21:43)
[2019-01-12] MEDS: INSULIN ASPART [NOVOLOG] 3 ML PEN SC SCH ×4 (07:39→21:55)
[2019-01-12] MEDS: CLOPIDOGREL 75 MG TAB PO SCH (07:58)
[2019-01-12] MEDS: CREON (12k-38k-60k) 1 CAP PO SCH ×3 (07:58→17:05)
[2019-01-12] MEDS: POTASSIUM CHLORIDE (SR) 10 MEQ TAB PO SCH (07:59)
[2019-01-12] MEDS: FUROSEMIDE 40 MG INJ IV SCH (08:00)
[2019-01-12] MEDS: ASPIRIN (EC) 81 MG TAB PO SCH (08:00)
[2019-01-12] MEDS: AMIODARONE 200 MG TAB PO SCH (08:00)
[2019-01-12] MEDS: FENOFIBRATE 145 MG TAB PO SCH (08:00)
[2019-01-12] MEDS: PANTOPRAZOLE (EC) 40 MG TAB PO SCH (08:02)
[2019-01-12] MEDS: ENOXAPARIN 40 MG/0.4 ML SYG SC SCH (08:19)
[2019-01-12] MEDS: METOPROLOL (XL) 25 MG TAB PO SCH (09:00)
--- NOTE | 2019-01-12 11:23 | PN ---
Date/Time of Note Date/Time of Note DATE: 01/12/19 TIME: 11:22 Assessment/Plan VTE Prophylaxis Risk score (from Ns)>0 risk: 3 SCD applied (from Ns): No SCD contraindicated: low risk/ambulating Pharmacological prophylaxis: LMWH Lines/Catheters IV Catheter Type (from Nrs): Peripheral IV Urinary Cath still in place: No Assessment/Plan Hospital Course 1. CHF exacerbation,BNP 3500. hx of EF 35%. On chest xray: "Cardiomegaly with interstitial pulmonary edema.." 2. Hypernatremia, resolved 144 today 3. CAD s/p stent to LAD, 2017 4. JONATHAN? creatinine slightly increase to 1.17 from 1.08. Ua showed trace leucocyte esterase. 5. HTN, controlled 6. DM type II, controlled Hg A1 C 7.0 7. Obesity 8. hyperlipidemia 9. Overweight 10. hx of pancreatic resection 11. bradycardia Assessment/Plan -hold lasix -creatinine increase to 1.42 -telemetry - DVT prophylaxis Lovenox - GI prophylaxis Protonix - SS moderate with insulin coverage -dr Bhardwaj is a cardio consult, seen -C/w home meds -communicated with daughter - 1800 ADA diet with fluid restrictions - fluid restrictions Result Diagram: 01/12/19 0636 01/12/19 0636 Results 24hrs Laboratory Tests Test 01/11/19 11:46 01/11/19 17:22 01/11/19 21:13 01/12/19 06:36 Bedside Glucose 335 H 151 233 H White Blood Count 7.0 Red Blood Count 4.49 Hemoglobin 12.5 Hematocrit 39.1 Mean Corpuscular 87.1 Volume Mean Corpuscular 27.8 L Hemoglobin Mean Corpuscular 32.0 Hemoglobin Concent Red Cell 16.3 H Distribution Width Platelet Count 267 Mean Platelet Volume 13.5 H Immature 0.400 Granulocytes % Neutrophils % 47.6 Lymphocytes % 37.7 Monocytes % 12.1 H Eosinophils % 1.6 Basophils % 0.6 Nucleated Red Blood 0.0 Cells % Immature 0.030 Granulocytes # Neutrophils # 3.3 Lymphocytes # 2.6 Monocytes # 0.9 Eosinophils # 0.1 Basophils # 0.0 Nucleated Red Blood 0.0 Cells # Sodium Level 140 Potassium Level 4.4 Chloride Level 101 Carbon Dioxide Level 30 Anion Gap 9 Blood Urea Nitrogen 33 H Creatinine 1.42 H Est Glomerular 37 L Filtrat Rate mL/min Glucose Level 188 Calcium Level 9.7 Test 01/12/19 07:24 Bedside Glucose 180 Subjective 24 Hr Interval Summary Constitutional: no complaints, improved Exam/Review of Systems Exam Vitals Vital Signs Date Temp Pulse Resp B/P (MAP) Pulse Ox O2 O2 Flow FiO2 Time Delivery Rate 01/12/19 58 08:31 01/12/19 97.9 20 126/67 98 Room Air 07:35 (86) 01/10/19 2.0 12:46 Intake and Output 01/11/19 01/11/19 01/12/19 1515:00 23:00 07:00 IntakeIntake Total 720 ml 650 ml BalanceBalance 720 ml 650 ml Constitutional: alert, oriented Eyes: nl conjunctiva ENMT: nl external ears & nose Neck: supple Respiratory: clear to auscultation Cardiovascular: edema, irregular rhythm; No regular rate and rhythm, No nl pulses, No bruits, No diastolic murmur, No gallop, No jugular venous distention (JVD), No murmurs/extra sounds, No rub, No systolic murmur, No S3, No S4, No other Results Results 24hrs Laboratory Tests Test 01/11/19 11:46 01/11/19 17:22 01/11/19 21:13 01/12/19 06:36 Bedside Glucose 335 H 151 233 H White Blood Count 7.0 Red Blood Count 4.49 Hemoglobin 12.5 Hematocrit 39.1 Mean Corpuscular 87.1 Volume Mean Corpuscular 27.8 L Hemoglobin Mean Corpuscular 32.0 Hemoglobin Concent Red Cell 16.3 H Distribution Width Platelet Count 267 Mean Platelet Volume 13.5 H Immature 0.400 Granulocytes % Neutrophils % 47.6 Lymphocytes % 37.7 Monocytes % 12.1 H Eosinophils % 1.6 Basophils % 0.6 Nucleated Red Blood 0.0 Cells % Immature 0.030 Granulocytes # Neutrophils # 3.3 Lymphocytes # 2.6 Monocytes # 0.9 Eosinophils # 0.1 Basophils # 0.0 Nucleated Red Blood 0.0 Cells # Sodium Level 140 Potassium Level 4.4 Chloride Level 101 Carbon Dioxide Level 30 Anion Gap 9 Blood Urea Nitrogen 33 H Creatinine 1.42 H Est Glomerular 37 L Filtrat Rate mL/min Glucose Level 188 Calcium Level 9.7 Test 01/12/19 07:24 Bedside Glucose 180 Medications Medication Current Medications Amiodarone HCl (Cordarone) 200 mg DAILY PO Last administered on 01/12/19 08:00; Admin Dose 200 MG; Start 01/10/19 at 15:30 Aspirin (Halfprin) 81 mg DAILY PO Last administered on 01/12/19 08:00; Admin Dose 81 MG; Start 01/10/19 at 15:30 Atorvastatin Calcium (Lipitor) 80 mg QHS PO Last administered on 01/11/19 21:14; Admin Dose 80 MG; Start 01/10/19 at 21:00 Clopidogrel Bisulfate (plaVIX) 75 mg DAILY PO Last administered on 01/12/19 07:58; Admin Dose 75 MG; Start 01/10/19 at 15:30 Fenofibrate (Tricor) 145 mg DAILY PO Last administered on 01/12/19 08:00; Admin Dose 145 MG; Start 01/11/19 at 09:00 Insulin Glargine (Lantus) 15 units QHS SC Last administered on 01/11/19 21:53; Admin Dose 15 UNITS; Start 01/10/19 at 21:00 Lisinopril (Zestril) 5 mg DAILY PO Last administered on 01/11/19 08:40; Admin Dose 5 MG; Start 01/11/19 at 09:00 Metoprolol Succinate (Toprol Xl) 12.5 mg DAILY PO Last administered on 01/10/19 17:33; Admin Dose 12.5 MG; Start 01/10/19 at 15:30 Pantoprazole (Protonix Tab) 40 mg AC BREAKFAST PO Last administered on 01/12/19 08:02; Admin Dose 40 MG; Start 01/11/19 at 07:00 Potassium Chloride (Klor-Con 10) 10 meq DAILY PO Last administered on 01/12/19 07:59; Admin Dose 10 MEQ; Start 01/10/19 at 15:30 Sucralfate (Carafate) 1 gm AC MEALS AND BEDTIME PO Last administered on 01/12/19 07:25; Admin Dose 1 GM; Start 01/10/19 at 17:25 Insulin Aspart (Novolog Insulin Pen) NOVOLOG *MILD* ALGORITHM WITH MEALS BEDTIME SC Last administered on 01/12/19 07:39; Admin Dose 1 UNIT; Start 01/10/19 at 17:55 Furosemide (Lasix) 40 mg DAILY IV Last administered on 01/12/19at 08:00; Admin Dose 40 MG; Start 01/11/19 at 09:00 Enoxaparin Sodium (Lovenox) 40 mg DAILY SC Last administered on 01/12/19at 0 8:19; Admin Dose 40 MG; Start 01/11/19 at 09:00 Miscellaneous Information 1 ea NOTE XX ; Start 01/10/19 at 16:30 Glucose (Glutose) 15 gm Q15M PRN PO DECREASED GLUCOSE; Start 01/10/19 at 16:30 Glucose (Glutose) 22.5 gm Q15M PRN PO DECREASED GLUCOSE; Start 01/10/19 at 16:30 Dextrose (D50w Syringe) 25 ml Q15M PRN IV DECREASED GLUCOSE; Start 01/10/19 at 16:30 Dextrose (D50w Syringe) 50 ml Q15M PRN IV DECREASED GLUCOSE; Start 01/10/19 at 16:30 Glucagon (Glucagen) 1 mg Q15M PRN IM DECREASED GLUCOSE; Start 01/10/19 at 16:30 Glucose (Glutose) 15 gm Q15M PRN BUCCAL DECREASED GLUCOSE; Start 01/10/19 at 16:30 Nitroglycerin (Nitroglycerin (Sl Tab) 0.4 Mg) 1 tab Q5M PRN SL ANGINA; Start 01/10/19 at 18:00 Amylase/Lipase/ Protease (CREON (12o-09k-60k)) 1 cap WITH MEALS PO Last administered on 01/12/19at 07:58; Admin Dose 1 CAP; Start 01/10/19 at 18:42 DINA STOKES Jan 12, 2019 11:23
--- NOTE | 2019-01-12 14:56 | CONS ---
Assessment/Plan Cardiology NYHA: II Heart Failure Type: Acute on Chronic Heart Failure Type: Systolic Assessment/Plan Hospital Course (Demo Recall) Acute decompensated systolic congestive heart failure Anterior ST elevation NM April 29, 2018 CAD status post PCI to LAD 04/29/2018 Ischemic cardiomyopathy with ejection fraction 35% Acute kidney injury History of hypertension Diabetes Paroxysmal atrial fibrillation, currently sinus rhythm History of GI bleed -Respiratory status is improved. Currently off diuretics secondary to abnormal renal function -Continue dual antiplatelet therapy as tolerated -Hold LYUBOV inhibitor given abnormal renal function Beta-clemente on hold given bradycardia Consultation Date/Type/Reason Admit Date/Time Jan 10, 2019 at 12:40 Initial Consult Date Type of Consult Cardiology Date/Time of Note DATE: 01/12/19 TIME: 14:54 24 HR Interval Summary Free Text/Dictation Feels better. Denies shortness of breath, chest pain or palpitations or dizziness Exam/Review of Systems Vital Signs Vitals Vital Signs Date Temp Pulse Resp B/P (MAP) Pulse Ox O2 O2 Flow FiO2 Time Delivery Rate 01/12/19 67 12:12 01/12/19 97.8 18 127/73 97 Room Air 11:44 (91) 01/10/19 2.0 12:46 Intake and Output 01/11/19 01/11/19 01/12/19 1515:00 23:00 07:00 IntakeIntake Total 720 ml 650 ml BalanceBalance 720 ml 650 ml Exam Constitutional: alert, oriented (Sitting in chair, no apparent distress) Head: normocephalic Respiratory: other (Coarse breath sounds bilaterally, no wheezing) Cardiovascular: regular rate and rhythm (S1-S2 heard) Gastrointestinal: soft, non-tender, bowel sounds Extremities: edema (Trace) Labs Result Diagram: 01/12/19 0636 01/12/19 0636 Results 24hrs Laboratory Tests Test 01/11/19 17:22 01/11/19 21:13 01/12/19 06:36 01/12/19 07:24 Bedside Glucose 151 233 H 180 White Blood Count 7.0 Red Blood Count 4.49 Hemoglobin 12.5 Hematocrit 39.1 Mean Corpuscular 87.1 Volume Mean Corpuscular 27.8 L Hemoglobin Mean Corpuscular 32.0 Hemoglobin Concent Red Cell 16.3 H Distribution Width Platelet Count 267 Mean Platelet Volume 13.5 H Immature 0.400 Granulocytes % Neutrophils % 47.6 Lymphocytes % 37.7 Monocytes % 12.1 H Eosinophils % 1.6 Basophils % 0.6 Nucleated Red Blood 0.0 Cells % Immature 0.030 Granulocytes # Neutrophils # 3.3 Lymphocytes # 2.6 Monocytes # 0.9 Eosinophils # 0.1 Basophils # 0.0 Nucleated Red Blood 0.0 Cells # Sodium Level 140 Potassium Level 4.4 Chloride Level 101 Carbon Dioxide Level 30 Anion Gap 9 Blood Urea Nitrogen 33 H Creatinine 1.42 H Est Glomerular 37 L Filtrat Rate mL/min Glucose Level 188 Calcium Level 9.7 Test 01/12/19 11:44 Bedside Glucose 246 H Medications Medications Current Medications Amiodarone HCl (Cordarone) 200 mg DAILY PO Last administered on 01/12/19 08:00; Admin Dose 200 MG; Start 01/10/19 at 15:30 Aspirin (Halfprin) 81 mg DAILY PO Last administered on 01/12/19 08:00; Admin Dose 81 MG; Start 01/10/19 at 15:30 Atorvastatin Calcium (Lipitor) 80 mg QHS PO Last administered on 01/11/19 21:14; Admin Dose 80 MG; Start 01/10/19 at 21:00 Clopidogrel Bisulfate (plaVIX) 75 mg DAILY PO Last administered on 01/12/19 07:58; Admin Dose 75 MG; Start 01/10/19 at 15:30 Fenofibrate (Tricor) 145 mg DAILY PO Last administered on 01/12/19 08:00; Admin Dose 145 MG; Start 01/11/19 at 09:00 Insulin Glargine (Lantus) 15 units QHS SC Last administered on 01/11/19 21:53; Admin Dose 15 UNITS; Start 01/10/19 at 21:00 Metoprolol Succinate (Toprol Xl) 12.5 mg DAILY PO Last administered on 01/10/19 17:33; Admin Dose 12.5 MG; Start 01/10/19 at 15:30; Status Hold Pantoprazole (Protonix Tab) 40 mg AC BREAKFAST PO Last administered on 08:02; Admin Dose 40 MG; Start 01/11/19 at 07:00 Potassium Chloride (Klor-Con 10) 10 meq DAILY PO Last administered on 01/12/19 07:59; Admin Dose 10 MEQ; Start 01/10/19 at 15:30 Sucralfate (Carafate) 1 gm AC MEALS AND BEDTIME PO Last administered on 01/12/19 12:01; Admin Dose 1 GM; Start 01/10/19 at 17:25 Insulin Aspart (Novolog Insulin Pen) NOVOLOG *MILD* ALGORITHM WITH MEALS BEDTI ME SC Last administered on 01/12/19 12:04; Admin Dose 3 UNIT; Start 01/10/19 at 17:55 Enoxaparin Sodium (Lovenox) 40 mg DAILY SC Last administered on 01/12/19at 08:19; Admin Dose 40 MG; Start 01/11/19 at 09:00 Miscellaneous Information 1 ea NOTE XX ; Start 01/10/19 at 16:30 Glucose (Glutose) 15 gm Q15M PRN PO DECREASED GLUCOSE; Start 01/10/19 at 16:30 Glucose (Glutose) 22.5 gm Q15M PRN PO DECREASED GLUCOSE; Start 01/10/19 at 16:30 Dextrose (D50w Syringe) 25 ml Q15M PRN IV DECREASED GLUCOSE; Start 01/10/19 at 16:30 Dextrose (D50w Syringe) 50 ml Q15M PRN IV DECREASED GLUCOSE; Start 01/10/19 at 16:30 Glucagon (Glucagen) 1 mg Q15M PRN IM DECREASED GLUCOSE; Start 01/10/19 at 16:30 Glucose (Glutose) 15 gm Q15M PRN BUCCAL DECREASED GLUCOSE; Start 01/10/19 at 16:30 Nitroglycerin (Nitroglycerin (Sl Tab) 0.4 Mg) 1 tab Q5M PRN SL ANGINA; Start 01/10/19 at 18:00 Amylase/Lipase/ Protease (CREON (12n-89k-60k)) 1 cap WITH MEALS PO Last administered on 01/12/19at 12:01; Admin Dose 1 CAP; Start 01/10/19 at 18:42 Antonio Bhardwaj DO Jan 12, 2019 14:56
[2019-01-12] MEDS: ATORVASTATIN 80 MG TAB PO SCH (21:43)
[2019-01-12] MEDS: INSULIN GLARGINE [LANTus] (100 UNITS/ML) SYG SC SCH (21:55)
[2019-01-13] VITALS (10 sets, daily range): BP systolic 112–127; BP diastolic 62–70; PULSE 53–72; RESP 16–19
[2019-01-13] MEDS: INSULIN ASPART [NOVOLOG] 3 ML PEN SC SCH ×4 (07:56→20:32)
[2019-01-13] MEDS: ASPIRIN (EC) 81 MG TAB PO SCH (08:20)
[2019-01-13] MEDS: POTASSIUM CHLORIDE (SR) 10 MEQ TAB PO SCH (08:20)
[2019-01-13] MEDS: PANTOPRAZOLE (EC) 40 MG TAB PO SCH (08:20)
[2019-01-13] MEDS: SUCRALFATE 1 GM TAB PO SCH ×4 (08:21→20:01)
[2019-01-13] MEDS: CREON (12k-38k-60k) 1 CAP PO SCH ×3 (08:21→16:50)
[2019-01-13] MEDS: AMIODARONE 200 MG TAB PO SCH (08:21)
[2019-01-13] MEDS: CLOPIDOGREL 75 MG TAB PO SCH (08:21)
[2019-01-13] MEDS: FENOFIBRATE 145 MG TAB PO SCH (08:25)
[2019-01-13] MEDS: ENOXAPARIN 40 MG/0.4 ML SYG SC SCH (08:28)
--- NOTE | 2019-01-13 10:41 | PN ---
Date/Time of Note Date/Time of Note DATE: 01/13/19 TIME: 10:39 Assessment/Plan VTE Prophylaxis Risk score (from [facility] [place])>0 risk: 7 SCD applied (from [facility] [place]): No SCD contraindicated: low risk/ambulating Pharmacological prophylaxis: NA/contraindicated Pharm contraindication: low risk/ambulating Lines/Catheters IV Catheter Type (from [facility]): Peripheral IV Urinary Cath still in place: No Assessment/Plan Assessment/Plan Hospital Course 1. CHF exacerbation,BNP 3500. hx of EF 35%. On chest xray: "Cardiomegaly with interstitial pulmonary edema.." 2. Hypernatremia 3. CAD s/p stent to LAD, 2017 4. JONATHAN? creatinine slightly increase to 1.17 from 1.08. Ua showed trace leucocyte esterase. Creatinine had jumped up to 1.4 likely secondary due to overdiuresis 5. HTN, controlled 6. DM type II, controlled Hg A1 C 7.0 7. Obesity 8. hyperlipidemia 9. Overweight 10. hx of pancreatic resection 11. bradycardia, clemente on hold Assessment/Plan -hold lasix -creatinine increase to 1.42> down to 1.3 today -Hold LYUBOV or ARB due to a KI -telemetry - DVT prophylaxis Lovenox - GI prophylaxis Protonix - SS moderate with insulin coverage - 1800 ADA diet with fluid restrictions - fluid restrictions dC planning once the creatinine is better so that patient can go home on diuretics Result Diagram: 01/13/1951601/13/1917 Results 24hrs Laboratory Tests Test 01/12/19 11:44 01/12/19 17:07 01/12/19 21:44 01/13/19 05:17 Bedside Glucose 246 H 256 H 235 H White Blood Count 7.9 Red Blood Count 4.55 Hemoglobin 12.5 Hematocrit 40.0 Mean Corpuscular 87.9 Volume Mean Corpuscular 27.5 L Hemoglobin Mean Corpuscular 31.3 L Hemoglobin Concent Red Cell 16.6 H Distribution Width Platelet Count 267 Mean Platelet Volume 13.4 H Immature 0.300 Granulocytes % Neutrophils % 45.5 Lymphocytes % 36.5 Monocytes % 15.0 H Eosinophils % 1.8 Basophils % 0.9 Nucleated Red Blood 0.0 Cells % Immature 0.020 Granulocytes # Neutrophils # 3.6 Lymphocytes # 2.9 Monocytes # 1.2 H Eosinophils # 0.1 Basophils # 0.1 Nucleated Red Blood 0.0 Cells # Sodium Level 144 Potassium Level 4.5 Chloride Level 101 Carbon Dioxide Level 33 H Anion Gap 10 Blood Urea Nitrogen 38 H Creatinine 1.34 H Est Glomerular Filtrat Rate mL/min Glucose Level 135 # Calcium Level 9.5 Test 01/13/19 07:54 Bedside Glucose 151 Subjective 24 Hr Interval Summary Free Text/Dictation Feels okay. Denies any shortness of breath Exam/Review of Systems Exam Vitals Vital Signs Date Temp Pulse Resp B/P (MAP) Pulse Ox O2 O2 Flow FiO2 Time Delivery Rate 01/13/19 97.6 57 18 112/62 97 07:37 (79) 01/12/19 Room Air 21:00 01/10/19 2.0 12:46 Intake and Output 01/12/19 01/12/19 01/13/19 1515:00 23:00 07:00 IntakeIntake Total 800 ml 600 ml BalanceBalance 800 ml 600 ml Exam Constitutional: alert, oriented Eyes: nl conjunctiva ENMT: nl external ears & nose Neck: supple Respiratory: clear to auscultation Cardiovascular: edema, irregular rhythm; No regular rate and rhythm, No nl pulses, No bruits, No diastolic murmur, No gallop, No jugular venous distention (JVD), No murmurs/extra sounds, No rub, No systolic murmur, No S3, No S4, No other Results Results 24hrs Laboratory Tests Test 01/12/19 11:44 01/12/19 17:07 01/12/19 21:44 01/13/19 05:17 Bedside Glucose 246 H 256 H 235 H White Blood Count 7.9 Red Blood Count 4.55 Hemoglobin 12.5 Hematocrit 40.0 Mean Corpuscular 87.9 Volume Mean Corpuscular 27.5 L Hemoglobin Mean Corpuscular 31.3 L Hemoglobin Concent Red Cell 16.6 H Distribution Width Platelet Count 267 Mean Platelet Volume 13.4 H Immature 0.300 Granulocytes % Neutrophils % 45.5 Lymphocytes % 36.5 Monocytes % 15.0 H Eosinophils % 1.8 Basophils % 0.9 Nucleated Red Blood 0.0 Cells % Immature 0.020 Granulocytes # Neutrophils # 3.6 Lymphocytes # 2.9 Monocytes # 1.2 H Eosinophils # 0.1 Basophils # 0.1 Nucleated Red Blood 0.0 Cells # Sodium Level 144 Potassium Level 4.5 Chloride Level 101 Carbon Dioxide Level 33 H Anion Gap 10 Blood Urea Nitrogen 38 H Creatinine 1.34 H Est Glomerular Filtrat Rate mL/min Glucose Level 135 # Calcium Level 9.5 Test 01/13/19 07:54 Bedside Glucose 151 Medications Medication Current Medications Amiodarone HCl (Cordarone) 200 mg DAILY PO Last administered on 01/13/19 08:21; Admin Dose 200 MG; Start 01/10/19 at 15:30 Aspirin (Halfprin) 81 mg DAILY PO Last administered on 01/13/19 08:20; Admin Dose 81 MG; Start 01/10/19 at 15:30 Atorvastatin Calcium (Lipitor) 80 mg QHS PO Last administered on 01/12/19 21:43; Admin Dose 80 MG; Start 01/10/19 at 21:00 Clopidogrel Bisulfate (plaVIX) 75 mg DAILY PO Last administered on 01/13/19 08:21; Admin Dose 75 MG; Start 01/10/19 at 15:30 Fenofibrate (Tricor) 145 mg DAILY PO Last administered on 01/13/19 08:25; Admin Dose 145 MG; Start 01/11/19 at 09:00 Insulin Glargine (Lantus) 15 units QHS SC Last administered on 01/12/19 21:55; Admin Dose 15 UNITS; Start 01/10/19 at 21:00 Metoprolol Succinate (Toprol Xl) 12.5 mg DAILY PO Last administered on 01/10/19 17:33; Admin Dose 12.5 MG; Start 01/10/19 at 15:30; Status Hold Pantoprazole (Protonix Tab) 40 mg AC BREAKFAST PO Last administered on 01/13/19 08:20; Admin Dose 40 MG; Start 01/11/19 at 07:00 Potassium Chloride (Klor-Con 10) 10 meq DAILY PO Last administered on 01/13/19 08:20; Admin Dose 10 MEQ; Start 01/10/19 at 15:30 Sucralfate (Carafate) 1 gm AC MEALS AND BEDTIME PO Last administered on 01/13/19 08:21; Admin Dose 1 GM; Start 01/10/19 at 17:25 Insulin Aspart (Novolog Insulin Pen) NOVOLOG *MILD* ALGORITHM WITH MEALS BEDTIME SC Last administered on 3/25/19at 07:56; Admin Dose 1 UNIT; Start 01/10/19 at 17:55 Enoxaparin Sodium (Lovenox) 40 mg DAILY SC Last administered on 01/13/19at 08:28; Admin Dose 40 MG; Start 01/11/19 at 09:00 Miscellaneous Information 1 ea NOTE XX ; Start 01/10/19 at 16:30 Glucose (Glutose) 15 gm Q15M PRN PO DECREASED GLUCOSE; Start 01/10/19 at 16:30 Glucose (Glutose) 22.5 gm Q15M PRN PO DECREASED GLUCOSE; Start 01/10/19 at 16:30 Dextrose (D50w Syringe) 25 ml Q15M PRN IV DECREASED GLUCOSE; Start 01/10/19 at 16:30 Dextrose (D50w Syringe) 50 ml Q15M PRN IV DECREASED GLUCOSE; Start 01/10/19 at 16:30 Glucagon (Glucagen) 1 mg Q15M PRN IM DECREASED GLUCOSE; Start 01/10/19 at 16:30 Glucose (Glutose) 15 gm Q15M PRN BUCCAL DECREASED GLUCOSE; Start 01/10/19 at 16:30 Nitroglycerin (Nitroglycerin (Sl Tab) 0.4 Mg) 1 tab Q5M PRN SL ANGINA; Start 01/10/19 at 18:00 Amylase/Lipase/ Protease (CREON (12v-95k-60k)) 1 cap WITH MEALS PO Last administered on 01/13/19at 08:21; Admin Dose 1 CAP; Start 01/10/19 at 18:42 MILAN PORTER MD Jan 13, 2019 10:41
--- NOTE | 2019-01-13 12:12 | CONS ---
Assessment/Plan Cardiology NYHA: II Heart Failure Type: Acute on Chronic Heart Failure Type: Systolic Assessment/Plan Hospital Course (Demo Recall) Acute decompensated systolic congestive heart failure Anterior ST elevation [place] April 29, 2018 CAD status post PCI to LAD 04/29/2018 Ischemic cardiomyopathy with ejection fraction 35% Acute kidney injury History of hypertension Diabetes Paroxysmal atrial fibrillation, currently sinus rhythm History of GI bleed -Respiratory status is improved. Currently off diuretics secondary to abnormal renal function, renal function is improving. Restart maintenance diuretics when okay by nephrology, home dose was 20 mg p.o. of Lasix daily -Continue dual antiplatelet therapy as tolerated -Hold LYUBOV inhibitor given abnormal renal function -Beta-clemente on hold given bradycardia Consultation Date/Type/Reason Admit Date/Time Jan 10, 2019 at 12:40 Initial Consult Date Type of Consult Cardiology Date/Time of Note DATE: 01/13/19 TIME: 12:10 24 HR Interval Summary Free Text/Dictation Denies chest pain, shortness of breath, dizziness Exam/Review of Systems Vital Signs Vitals Vital Signs Date Temp Pulse Resp B/P (MAP) Pulse Ox O2 O2 Flow FiO2 Time Delivery Rate 01/13/19 97.7 71 19 112/63 95 11:47 (79) 01/12/19 Room Air 21:00 01/10/19 2.0 12:46 Intake and Output 01/12/19 01/12/19 01/13/19 1515:00 23:00 07:00 IntakeIntake Total 800 ml 600 ml BalanceBalance 800 ml 600 ml Exam Constitutional: alert, oriented (No apparent distress) Head: normocephalic Respiratory: other (Coarse breath sounds bilaterally, no wheezing) Cardiovascular: regular rate and rhythm (S1-S2) Gastrointestinal: soft, non-tender, bowel sounds Extremities: other (No significant edema) Labs Result Diagram: 01/13/19 0517 01/13/19 0517 Results 24hrs Laboratory Tests Test 01/12/19 17:07 01/12/19 21:44 01/13/19 05:17 01/13/19 07:54 Bedside Glucose 256 H 235 H 151 White Blood Count 7.9 Red Blood Count 4.55 Hemoglobin 12.5 Hematocrit 40.0 Mean Corpuscular 87.9 Volume Mean Corpuscular 27.5 L Hemoglobin Mean Corpuscular 31.3 L Hemoglobin Concent Red Cell 16.6 H Distribution Width Platelet Count 267 Mean Platelet Volume 13.4 H Immature 0.300 Granulocytes % Neutrophils % 45.5 Lymphocytes % 36.5 Monocytes % 15.0 H Eosinophils % 1.8 Basophils % 0.9 Nucleated Red Blood 0.0 Cells % Immature 0.020 Granulocytes # Neutrophils # 3.6 Lymphocytes # 2.9 Monocytes # 1.2 H Eosinophils # 0.1 Basophils # 0.1 Nucleated Red Blood 0.0 Cells # Sodium Level 144 Potassium Level 4.5 Chloride Level 101 Carbon Dioxide Level 33 H Anion Gap 10 Blood Urea Nitrogen 38 H Creatinine 1.34 H Est Glomerular Filtrat Rate mL/min Glucose Level 135 # Calcium Level 9.5 Test 01/13/19 11:33 Bedside Glucose 192 Medications Medications Current Medications Amiodarone HCl (Cordarone) 200 mg DAILY PO Last administered on 01/13/19 08:21; Admin Dose 200 MG; Start 01/10/19 at 15:30 Aspirin (Halfprin) 81 mg DAILY PO Last administered on 01/13/19 08:20; Admin Dose 81 MG; Start 01/10/19 at 15:30 Atorvastatin Calcium (Lipitor) 80 mg QHS PO Last administered on 01/12/19 21:43; Admin Dose 80 MG; Start 01/10/19 at 21:00 Clopidogrel Bisulfate (plaVIX) 75 mg DAILY PO Last administered on 01/13/19 08:21; Admin Dose 75 MG; Start 01/10/19 at 15:30 Fenofibrate (Tricor) 145 mg DAILY PO Last administered on 01/13/19 08:25; Adm in Dose 145 MG; Start 01/11/19 at 09:00 Insulin Glargine (Lantus) 15 units QHS SC Last administered on 01/12/19 21:55; Admin Dose 15 UNITS; Start 01/10/19 at 21:00 Metoprolol Succinate (Toprol Xl) 12.5 mg DAILY PO Last administered on 01/10/19 17:33; Admin Dose 12.5 MG; Start 01/10/19 at 15:30; Status Hold Pantoprazole (Protonix Tab) 40 mg AC BREAKFAST PO Last administered on 01/13/19 08:20; Admin Dose 40 MG; Start 01/11/19 at 07:00 Potassium Chloride (Klor-Con 10) 10 meq DAILY PO Last administered on 01/13/19 08:20; Admin Dose 10 MEQ; Start 01/10/19 at 15:30 Sucralfate (Carafate) 1 gm AC MEALS AND BEDTIME PO Last administered on 01/13/19 11:33; Admin Dose 1 GM; Start 01/10/19 at 17:25 Insulin Aspart (Novolog Insulin Pen) NOVOLOG *MILD* ALGORITHM WITH MEALS BEDTIME SC Last administered on 01/13/19 11:44; Admin Dose 2 UNIT; Start 01/10/19 at 17:55 Enoxaparin Sodium (Lovenox) 40 mg DAILY SC Last administered on 01/13/19 08:28; Admin Dose 40 MG; Start 01/11/19 at 09:00 Miscellaneous Information 1 ea NOTE XX ; Start 01/10/19 at 16:30 Glucose (Glutose) 15 gm Q15M PRN PO DECREASED GLUCOSE; Start 01/10/19 at 16:30 Glucose (Glutose) 22.5 gm Q15M PRN PO DECREASED GLUCOSE; Start 01/10/19 at 16:30 Dextrose (D50w Syringe) 25 ml Q15M PRN IV DECREASED GLUCOSE; Start 01/10/19 at 16:30 Dextrose (D50w Syringe) 50 ml Q15M PRN IV DECREASED GLUCOSE; Start 01/10/19 at 16:30 Glucagon (Glucagen) 1 mg Q15M PRN IM DECREASED GLUCOSE; Start 01/10/19 at 16:30 Glucose (Glutose) 15 gm Q15M PRN BUCCAL DECREASED GLUCOSE; Start 01/10/19 at 16:30 Nitroglycerin (Nitroglycerin (Sl Tab) 0.4 Mg) 1 tab Q5M PRN SL ANGINA; Start 01/10/19 at 18:00 Amylase/Lipase/ Protease (CREON (12v-64k-60k)) 1 cap WITH MEALS PO Last administered on 01/13/19 11:33; Admin Dose 1 CAP; Start 01/10/19 at 18:42 Antonio Bhardwaj DO Jan 13, 2019 12:12
[2019-01-13] MEDS: ATORVASTATIN 80 MG TAB PO SCH (20:01)
[2019-01-13] MEDS: INSULIN GLARGINE [LANTus] (100 UNITS/ML) SYG SC SCH (20:32)
[2019-01-14] VITALS: PULSE 62
[2019-01-14 00:18] VITALS: BP 114/60; PULSE 67; RESP 16
[2019-01-14 04:00] VITALS: BP 114/64; PULSE 56; PULSE 61; RESP 17
[2019-01-14] MEDS: INSULIN ASPART [NOVOLOG] 3 ML PEN SC SCH ×2 (07:55→11:37)
[2019-01-14] MEDS: SUCRALFATE 1 GM TAB PO SCH ×2 (08:00→11:37)
[2019-01-14] MEDS: AMIODARONE 200 MG TAB PO SCH (08:00)
[2019-01-14] MEDS: CLOPIDOGREL 75 MG TAB PO SCH (08:00)
[2019-01-14] MEDS: ASPIRIN (EC) 81 MG TAB PO SCH (08:00)
[2019-01-14] MEDS: CREON (12k-38k-60k) 1 CAP PO SCH ×2 (08:00→11:37)
[2019-01-14] MEDS: FENOFIBRATE 145 MG TAB PO SCH (08:00)
[2019-01-14] MEDS: PANTOPRAZOLE (EC) 40 MG TAB PO SCH (08:00)
[2019-01-14] MEDS: POTASSIUM CHLORIDE (SR) 10 MEQ TAB PO SCH (08:00)
[2019-01-14 08:01] VITALS: PULSE 58
[2019-01-14] MEDS: ENOXAPARIN 40 MG/0.4 ML SYG SC SCH (08:15)
[2019-01-14 12:01] VITALS: PULSE 69
[2019-01-14 12:15] VITALS: BP 116/69; PULSE 71; RESP 18
--- NOTE | 2019-01-14 12:50 | PDOCDIS ---
Discharge Instructions DIAGNOSIS Discharge Diagnosis CHF JONATHAN on CKD CONDITION [id number] Patient Condition: [id number] Fair HOME CARE INSTRUCTIONS: [id number] Diet Instructions: [id number] Low Fat /Cholesterol ACTIVITY: [id number] Activity Restrictions: [id number] Slowly Increase Activity Rest between Activity Avoid heavy lifting FOLLOW UP/APPOINTMENTS Follow-up Plan Follow-up with PCP 1-[address] Singh in 1-2 weeks Resume Lasix 20 daily return To ER if has chest pain shortness of breath MILAN PORTER MD Jan 14, 2019 12:50
--- NOTE | 2019-01-14 13:55 | DS ---
DATE OF ADMISSION: 01/10/2019 DATE OF DISCHARGE: 01/14/2019 HISTORY OF PRESENT ILLNESS AND HOSPITAL COURSE: This is a 69-year-old female with past medical histo ry of a STEMI, status post stenting of LAD in April 2008 and currently on aspirin, Plavix, ischemic ca rdiomyopathy, congestive heart failure, EF of 35%, history of afib, diabetes, status post partial cherry createctomy, anemia, recurrent urinary tract infection, presented to ER sudden onset of chills, produ ctive cough, shortness of breath. She woke up this morning, blood pressure was elevated. She was sh aking at night, cough x3 to 4 days. On admission, vital signs were stable. Patient had a chest x-ra y that showed cardiomegaly with interstitial pulmonary edema. Labs showed a white count of 7.8, hemo globin 12.0, platelet count of 251. BMP showed a creatinine of 1.08. Sodium of 146. UA was done wh ich was negative. The patient was seen by cardiology, was admitted to telemetry unit and started on IV Lasix, continued on aspirin and Plavix. However, in a day or so, patient's creatinine continued t o rise. Lasix was held. Lisinopril was held. Creatinine peaked up to 1.42, then peaked down to 1.1 9. Influenza A and B were checked. The patient was clinically feeling better. Per cardiology, the patient is stable to be discharged home. FINAL DISCHARGE DIAGNOSES: 1. Acute compensated systolic congestive heart failure. 2. History of anterior ST elevation myocardial infarction 04/2018. 3. Coronary artery disease status post percutaneous coronary intervention to left anterior descendin g 04/29/2008. 4. Ischemic cardiomyopathy, EF of 35%. 5. Acute kidney injury on chronic kidney disease, resolving, likely secondary to over diuresis. 6. Hypertension. 7. Diabetes. 8. History of atrial fibrillation in sinus rhythm. 9. History of GI bleed. 10. History of partial pancreatectomy. DISCHARGE CONDITION: Stable. DISCHARGE DIET: A 2 gram sodium, carb controlled diet. DISCHARGE MEDICATIONS: 1. Amiodarone 200. 2. Aspirin 81. 3. Atorvastatin 80. 4. Plavix 75. 5. Fenofibrate 145. 6. Lasix 20. 7. Lantus 10 at bedtime with meals. 8. Creon. 9. Lisinopril was restarted back 5 mg. 10. Pantoprazole 40. 11. KCl Sucralfate 1 gram p.o. meals and bedtime. HOME MEDICATIONS: Metoprolol 12.5 every day because of the bradycardia. The patient was instructed to follow up with PCP in 1 to 2 weeks and cardiology in 1 to 2 weeks. Ret urn to the ER for chest pain and shortness of breath. Dictated By: MILAN NICHOLSON/CECILIA Conf#: [id number] DID#: [id number]
--- NOTE | 2019-01-14 18:02 | CONS ---
Assessment/Plan Cardiology NYHA: II Heart Failure Type: Acute on Chronic Heart Failure Type: Systolic Assessment/Plan Hospital Course (Demo Recall) Acute decompensated systolic congestive heart failure Anterior ST elevation [place] April 29, 2018 CAD status post PCI to LAD 04/29/2018 Ischemic cardiomyopathy with ejection fraction 35% Acute kidney injury History of hypertension Diabetes Paroxysmal atrial fibrillation, currently sinus rhythm History of GI bleed -Respiratory status is improved. Currently off diuretics secondary to abnormal renal function, renal function is improving. Restart maintenance diuretics when okay by nephrology, home dose was 20 mg p.o. of Lasix daily -Continue dual antiplatelet therapy as tolerated -Recommended to patient's family to DC amiodarone, continue Toprol-XL 12.5 mg p.o. daily as an outpatient Consultation Date/Type/Reason Admit Date/Time Jan 10, 2019 at 12:40 Initial Consult Date Type of Consult Cardiology Date/Time of Note DATE: 01/14/19 TIME: 18:00 24 HR Interval Summary Free Text/Dictation Feeling much better. Denies dizziness, chest pain or shortness of breath Exam/Review of Systems Vital Signs Vitals Vital Signs Date Temp Pulse Resp B/P (MAP) Pulse Ox O2 O2 Flow FiO2 Time Delivery Rate 01/14/19 98.7 71 18 116/69 98 Room Air 12:15 (85) 01/10/19 2.0 12:46 Intake and Output 01/13/19 01/13/19 01/14/19 1414:59 22:59 06:59 IntakeIntake Total 800 ml 480 ml BalanceBalance 800 ml 480 ml Exam Constitutional: alert, oriented (No apparent distress) Head: normocephalic Respiratory: clear to auscultation, normal air movement Cardiovascular: regular rate and rhythm (S1-S2 heard) Gastrointestinal: soft, non-tender, bowel sounds Extremities: other (No significant edema) Labs Result Diagram: 01/13/19 0517 01/14/19 0635 Results 24hrs Laboratory Tests Test 01/13/19 19:55 01/14/19 06:35 01/14/19 07:59 01/14/19 11:37 Bedside Glucose 190 106 138 Sodium Level 145 H Potassium Level 4.3 Chloride Level 103 Carbon Dioxide Level 32 H Anion Gap 10 Blood Urea Nitrogen 30 H Creatinine 1.19 H Est Glomerular Filtrat Rate mL/min Glucose Level 115 Calcium Level 9.9 Antonio Bhardwaj DO Jan 14, 2019 18:02
== END 2019-01-14 15:09 | disposition home or self-care (01) | DRG 292 ==
LOC: E/R 06:19 → TEL 12:40
PROVIDERS: ADMIT Internal Medicine; ATTEND Internal Medicine
DX: I11.0 Hypertensive heart disease with heart failure (principal); N17.9 Acute kidney failure, unspecified; E87.0 Hyperosmolality and hypernatremia; I25.5 Ischemic cardiomyopathy; I25.10 Atherosclerotic heart disease of native coronary artery without angina pectoris; E11.9 Type 2 diabetes mellitus without complications; I48.0 Paroxysmal atrial fibrillation; R00.1 Bradycardia, unspecified; I50.43 Acute on chronic combined systolic (congestive) and diastolic (congestive) heart failure; E78.5 Hyperlipidemia, unspecified; E66.9 Obesity, unspecified; Z68.25 Body mass index [BMI] 25.0-25.9, adult; I25.2 Old myocardial infarction; Z79.4 Long term (current) use of insulin; Z79.02 Long term (current) use of antithrombotics/antiplatelets; Z79.82 Long term (current) use of aspirin; Z90.411 Acquired partial absence of pancreas; Z95.5 Presence of coronary angioplasty implant and graft; Z90.49 Acquired absence of other specified parts of digestive tract
CPT/HCPCS: 36415; 71045; 80048; 80053; 81001; 82962; 83036; 83880; 84484; 85025; 87400; 93005; J1650; J1815; J1940

== ENCOUNTER 2019-04-17 14:16 | Emergency (ER) | payer OTHER ==
[~2019-04-17] VITALS: Ht 165.1 cm; Wt 79.5 kg
[~2019-04-17 14:16] MED LIST changes: +CLOP75TA19 PO; -CLOP75TA28 PO; +FENO145T37 PO; -GABA300C16 PO; -INSU100V14 SC; +INSU100V3 IJ; +LISI-313 PO; -METO-335 PO; -POLY17PO28 PO; +POTA10TA37 PO; -POTA8CAP PO
[2019-04-17 14:26] VITALS: Ht 165.1 cm; Wt 79.5 kg
[2019-04-17] MEDS ORDERED: ONDANSETRON 4 MG INJ IV STA (14:39)
[2019-04-17] MEDS ORDERED: morphine 4 MG/ML VIAL IV STA (14:39)
[2019-04-17] MEDS ORDERED: LORAZEPAM 2 MG INJ IV ONE (15:30)
[2019-04-17] MEDS ORDERED: CEPH-443 PO (16:33)
--- NOTE | 2019-04-17 16:34 | ERD ---
ER Documentation Chief Complaint Chief Complaint non traumatic neck pain x 1 week HPI Patient is a 69-year-old female with hypertension and diabetes who presents with headache. The patient was brought in by ambulance. She describes the headache as a "burning". She had vomiting. The symptoms started 1 week ago. The symptoms were worse today. She has had no treatment as of yet. Upon review of old medical records this is the patient's eighth visit to the ER since 2016. ROS All systems reviewed and are negative except as per history of present illness. Medications Home Meds Active Scripts Cephalexin* (Keflex*) 500 Mg Capsule, 500 MG PO BID for 7 Days, CAP Prov:JACINTA MORRELL MD 04/17/19 Reported Medications Potassium Chloride* (K-Dur*) 10 Meq Tab.prt.sr, 10 MEQ PO DAILY, TAB 01/10/19 Insulin Regular, Human (Humulin R) 100 Unit/1 Ml Vial, 0 IJ WITH MEALS, VIAL 5-10 units 01/10/19 Insulin Glargine* (Lantus*) 100 Unit/Ml Soln, 0 SC QHS, #1 VIAL 15-20 units 01/10/19 Ybfkvr-Wbrdtefc-Tljwocm* (Mally ESQUIVEL* 12,000) 12,000 L-38,000-60,000 Unit Capsule.dr, 1 CAP PO WITH MEALS, CAP 01/10/19 Fenofibrate Nanocrystallized* (Fenofibrate*) 145 Mg Tablet, 145 MG PO DAILY, TAB 01/10/19 Atorvastatin* (Atorvastatin*) 80 Mg Tablet, 80 MG PO QHS, #30 TAB 01/10/19 Clopidogrel Bisulfate* (Clopidogrel Bisulfate*) 75 Mg Tablet, 75 MG PO DAILY, #30 TAB 01/10/19 Pantoprazole* (Pantoprazole*) 40 Mg Tablet.dr, 40 MG PO AC BREAKFAST, TAB 01/10/19 Aspirin* (Aspirin* EC) 81 Mg Tablet.dr, 81 MG PO DAILY, TAB 01/10/19 Furosemide* (Furosemide*) 20 Mg Tablet, 20 MG PO DAILY, #60 TAB 01/10/19 Sucralfate* (Carafate*) 1 Gm Tab, 1 GM PO AC MEALS AND BEDTIME, TAB 01/10/19 Amiodarone Hcl* (Amiodarone Hcl*) 200 Mg Tablet, 200 MG PO DAILY, #30 TAB 01/10/19 Lisinopril* (Lisinopril*) 5 Mg Tablet, 5 MG PO DAILY, #30 TAB 01/10/19 Allergies Allergies: Coded Allergies: No Known Allergy (Unverified , 04/17/19) PMhx/Soc History of Surgery: No Anesthesia Reaction: No Hx Neurological Disorder: No Hx Respiratory Disorders: No Hx Cardiac Disorders: Yes (HTN, CHF, stents) Hx Psychiatric Problems: No Hx Miscellaneous Medical Probl: No Hx Alcohol Use: No Hx Substance Use: No Hx Tobacco Use: No Smoking Status: Never smoker FmHx Family History: No diabetes Physical Exam Vitals Vital Signs Date Temp Pulse Resp B/P (MAP) Pulse Ox O2 O2 Flow FiO2 Time Delivery Rate 04/17/19 Nasal 2 15:53 Cannula 04/17/19 59 16 106/63 100 Nasal 2.0 15:53 (77) Cannula 04/17/19 98.0 62 18 146/86 100 Room Air 14:27 (106) 04/17/19 98.1 86 18 155/72 98 14:26 (99) Physical Exam Const: Moderate distress Head: Atraumatic Eyes: Normal Conjunctiva ENT: Normal External Ears, Nose and Mouth. Neck: Full range of motion. No meningismus. Resp: Clear to auscultation bilaterally Cardio: Regular rate and rhythm, no murmurs Abd: Soft, non tender, non distended. Normal bowel sounds Skin: No petechiae or rashes Back: No midline or flank tenderness Ext: No cyanosis, or edema Neur: Awake and alert, cranial nerves II through XII intact, strength is 5 out of 5 in all 4 extremities, no slurred speech Psych: Normal Mood and Affect Result Diagram: 04/17/19 1447 04/17/19 1447 Results 24 hrs Laboratory Tests Test 04/17/19 14:44 04/17/19 14:47 04/17/19 14:52 04/17/19 14:53 Bedside Glucose 103 mg/dL White Blood Count 9.6 10^3/ul Red Blood Count 4.42 10^6/ul Hemoglobin 12.8 g/dl Hematocrit 39.9 % Mean Corpuscular 90.3 fl Volume Mean Corpuscular 29.0 pg Hemoglobin Mean Corpuscular 32.1 g/dl Hemoglobin Concen t Red Cell 14.6 % Distribution Width Platelet Count 283 10^3/UL Mean Platelet 12.5 fl Volume Immature 0.300 % Granulocytes % Neutrophils % 54.4 % Lymphocytes % 35.4 % Monocytes % 8.3 % Eosinophils % 1.3 % Basophils % 0.3 % Nucleated Red 0.0 /100WBC Blood Cells % Immature 0.030 10^3/ul Granulocytes # Neutrophils # 5.2 10^3/ul Lymphocytes # 3.4 10^3/ul Monocytes # 0.8 10^3/ul Eosinophils # 0.1 10^3/ul Basophils # 0.0 10^3/ul Nucleated Red 0.0 10^3/ul Blood Cells # Prothrombin Time 13.6 Sec Prothrombin Time 1.1 Ratio INR International 1.03 Normalized Ratio Activated 31.6 Sec Partial Thrombopl ast Time Sodium Level 143 mmol/L Potassium Level 4.3 mmol/L Chloride Level 104 mmol/L Carbon Dioxide 29 mmol/L Level Anion Gap 10 Blood Urea 37 mg/dl Nitrogen Creatinine 1.37 mg/dl Est Glomerular mL/min Filtrat Rate mL/min Glucose Level 105 mg/dl Hemoglobin A1c 6.6 % Calcium Level 9.7 mg/dl Total Bilirubin 0.6 mg/dl Direct Bilirubin 0.00 mg/dl Indirect 0.6 mg/dl Bilirubin Aspartate Amino 22 IU/L Transf (AST/SGOT) Alanine 20 IU/L Aminotransferase (ALT/SGPT) Alkaline 94 IU/L Phosphatase Troponin I < 0.012 ng/ml Total Protein 7.8 g/dl Albumin 4.6 g/dl Triglycerides 198 mg/dl Level Cholesterol Level 152 mg/dl LDL Cholesterol, 67 mg/dl Calculated HDL Cholesterol 45 mg/dl Cholesterol/HDL 3.3 RATIO Ratio Lipase 101 U/L Urine Color STRAW Urine Clarity CLEAR Urine pH 5.0 Urine Specific 1.008 [place] Urine Ketones NEGATIVE mg/dL Urine Nitrite NEGATIVE mg/dL Urine Bilirubin NEGATIVE mg/dL Urine NEGATIVE mg/dL Urobilinogen Urine Leukocyte 1+ Chinedu/ul Esterase Urine Microscopic 0 /HPF RBC Urine Microscopic 5 /HPF WBC Urine Bacteria FEW /HPF Urine Hemoglobin NEGATIVE mg/dL Urine Glucose NEGATIVE mg/dL Urine Total NEGATIVE mg/dl Protein Urine Opiates Negative Screen Urine Negative Barbiturates Urine Negative Amphetamines Screen Urine Negative Benzodiazepines Screen Urine Cocaine Negative Screen Urine Negative Cannabinoids Current Medications Medications Dose Sig/Kecia Start Time Status Last (Trade) Ordered Route PRN Stop Time Admin Dose Reason Admin Morphine 4 mg ONCE STAT 04/17/19 DC 04/17/19 Sulfate IV 14:39 14:59 (morphine) 04/17/19 14:40 Ondansetron 4 mg ONCE STAT 04/17/19 DC 04/17/19 HCl (Zofran IV 14:39 14:59 Inj) 04/17/19 14:40 Lorazepam 1 mg ONCE ONCE 04/17/19 DC 04/17/19 (Ativan) IV 15:30 15:34 04/17/19 15:31 Procedures/MDM CT brain read by radiology. Patient is a 69-year-old female who presents with complaints of headache, abdominal pain, and anxiety. The patient had a work-up with laboratory studies and CT scan of the brain. Laboratory studies are basically normal. She was fo und to have an acute cystitis. CT scan of the brain shows no signs of mass or bleeding. At this point I doubt stroke, intracranial hemorrhage, or intracranial mass. I doubt appendicitis, cholecystitis, pancreatitis, or bowel obstruction. The patient will be treated with Keflex for 1 week. The patient can return for any worsening symptoms. She was provided with copies of her laboratory studies prior to discharge. She should follow-up with her primary doctor within 24 to 48 hours. Departure Diagnosis: Primary Impression: Cystitis Additional Impressions: Headache Headache type: unspecified Headache chronicity pattern: acute headache Intractability: not intractable Qualified Codes: R51 - Headache Abdominal pain Abdominal location: unspecified location Qualified Codes: R10.9 - Unspecified abdominal pain Condition: Fair Patient Instructions: Abdominal Pain, Self-Care for Headaches, Cystitis Additional Instructions: Call your primary care doctor TOMORROW for an appointment during the next 1-2 days.See the doctor sooner or return here if your condition worsens before your appointment time. JACINTA MORRELL MD Apr 17, 2019 16:34
[2019-04-17 17:32] VITALS: BP 111/66; PULSE 63; RESP 16
== END 2019-04-17 17:35 | disposition home or self-care (01) ==
LOC: E/R 14:16
DX: N30.00 Acute cystitis without hematuria (principal); R51 Headache; E11.9 Type 2 diabetes mellitus without complications; I11.0 Hypertensive heart disease with heart failure; I50.9 Heart failure, unspecified; Z79.02 Long term (current) use of antithrombotics/antiplatelets; Z79.4 Long term (current) use of insulin; Z79.82 Long term (current) use of aspirin
CPT/HCPCS: 36415; 70450; 71045; 80048; 80061; 80076; 80307; 81001; 82962; 83036; 83690; 84484; 85025; 85610; 85730; 93005; 96374; 96375; J2060; J2270; J2405; Z7502